=== PATIENT | female | born 1935 | race Caucasian/White ===

== ENCOUNTER 2025-02-12 07:43 | Emergency (ER) | payer OTHER ==
[~2025-02-12] VITALS: Ht 170.2 cm; Wt 60.6 kg
--- NOTE | 2025-02-12 08:16 | Physician Documentation ---
History of Present Illness General Chief Complaint: Urinary Symptoms Stated Complaint: URINARY SYMPTOMS Time Seen by MD: 08:12 Source: patient, family Mode of Arrival: POV Exam Limitations: no limitations History of Present Illness Initial Comments 89 year old female presents to the emergency department for complaints of a possible urine infection that began one week ago. Patient states that she had worn a maxi pad for a long time without changing it, which she believes has caused her urine to produce a foul odor. Patient denies any frequency, pain, or pressure when urinating. She states that her symptom has been present for a week but worsened yesterday. Additionally, she states that she has used rash cream which caused her symptoms to worsen. Medication Reconciliation Allergies: Coded Allergies: No Known Allergies (Unverified , 02/12/25) Scheduled Cefpodoxime Proxetil (Cefpodoxime Proxetil), 1 TAB PO Q12H Past Medical History Past Medical History: No Pertinent History Review of Systems All Other Systems at this time: Reviewed and Negative ROS Patient was asked, but denied any other symptoms. All other systems are negative other than those mentioned above. Physical Exam Physical Exam Vital Signs: RN Vital Signs have been reviewed: Yes, Temperature: 98.5, Source: Oral, Heart Rate: 91, Respiratory Rate: 16, BP: 146/87, Pulse Oximetry: 98, Weight: 60.600 Oxygen Flow Rate: 0 Pulse Oximetry Reflects: adequate oxygenation Physical Exam VITALS: Reviewed and as above. GENERAL: Alert, no apparent distress. HEENT: Normocephalic, atraumatic. PERRL, EOMI. Dry mucosa, no erythema. RESPIRATORY: Lungs clear, normal breath sounds, no respiratory distress. CHEST: No accessory muscle use, no retractions. CV: Regular rate and rhythm. No edema, no murmur, No: JVD GI: Soft, non-tender, bowel sounds present. No rebound, guarding, or rigidity. BACK: No CVA tenderness, no swelling. MUSCULOSKELETAL: No deformities, no edema SKIN: Warm and dry, no rash. NEURO: Oriented x4. No motor or sensory deficit. PSYCH: Normal mood and affect, no agitation. Progress Results/Orders Results/Orders Medications Received in ER Medications (Trade) Dose Ordered Sig/Lian Route PRN Reason Start Time Stop Time Status Last Admin Dose Admin Ceftriaxone Sodium 50 ml @ 100 mls/hr ONCE ONCE IV 02/12/25 08:25 02/12/25 08:54 DC 02/12/25 09:16 100 MLS/HR Vital Signs 02/12/25 02/12/25 07:50 08:13 Temp 98.5 98.5 Pulse 90 91 Resp 16 16 B/P (MAP) 165/84 146/87 (106) Pulse Ox 97 98 O2 Flow Rate 0 0 Laboratory Tests Test 02/12/25 09:11 02/12/25 09:50 02/12/25 10:44 White Blood Count 8.1 Red Blood Count 4.37 Hemoglobin 12.6 Hematocrit 38.0 Mean Corpuscular Volume 87.0 Mean Corpuscular Hemoglobin 28.8 Mean Corpuscular Hemoglobin Concent 33.1 Red Cell Distribution Width 15.7 H Platelet Count 346 Mean Platelet Volume 6.5 L Neutrophils (%) (Auto) 68.3 Lymphocytes (%) (Auto) 21.3 Monocytes (%) (Auto) 5.9 Eosinophils (%) (Auto) 2.9 Basophils (%) (Auto) 1.6 H Neutrophils # (Auto) 5.5 Lymphocytes # (Auto) 1.7 Monocytes # (Auto) 0.5 Eosinophils # (Auto) 0.2 Basophils # (Auto) 0.1 CBC Comment Chemistry Comments Sodium Level 138 Potassium Level 4.5 Chloride Level 104 Carbon Dioxide Level 28.8 Anion Gap 5 L Blood Urea Nitrogen 12 Creatinine 0.88 Estimated GFR/1.73 m2 61 BUN/Creatinine Ratio 13.6 Glucose Level 93 Calcium Level 8.9 Albumin 3.3 L Urine Specimen Description Voided Urine Color Yellow Urine Clarity Cloudy Urine pH 8.0 Urine Specific Addy 1.015 Urine Protein Negative Urine Glucose (UA) Negative Urine Ketones Negative Urine Occult Blood Small Urine Nitrite Positive H Urine Bilirubin Negative Urine Urobilinogen 0.2 Urine Leukocyte Esterase Large H Urine RBC 3-10 Urine WBC Tntc H Urine Squamous Epithelial Cells Few Urine Transitional Epithelial Cells Few Urine Renal Cells Few Urine Bacteria 4+ Urine Culture Indicated Indicated Volume Urine Centrifuged 10 ml Urine Comment Departure Time of Disposition: 11:14 Disposition: 01 HOME / SELF CARE / HOMELESS Impression: Primary Impression: UTI (urinary tract infection) Condition: Stable Discharge Instructions: Urinary Tract Infection, Adult Referrals: NO PRIMARY CARE PROVIDER (PCP) Prescriptions Cefpodoxime Proxetil (Cefpodoxime Proxetil) 100 Mg Tablet 1 TAB PO Q12H for 7 Days, #14 TAB 0 Refills Prov: MATTEO ROCHA MD 02/12/25 Education Educated: Patient Educated regarding: diagnosis, treatment, need for follow up Signature Scribe Signature: Scribed for Matteo Rocha MD by Sanjuana Murray . 02/12/25 08:27 MATTEO ROCHA MD Feb 12, 2025 08:16 SANJUANA HOU Feb 12, 2025 08:27
[2025-02-12] MEDS: CefTRIAXone/D5W-Rocephin 1gm 50 ML IV ONE (09:16)
[2025-02-12 09:33] LABS: MEAN PLATELET VOLUME 6.5 FL (7.4-10.4); RED CELL DISTRIBUTION WIDTH 15.7 % (11.5-14.5)
[2025-02-12 10:09] LABS: CREATININE 0.88 MG/DL (0.40-0.90); TOTAL CARBON DIOXIDE 28.8 MMOL/L (24-32); eCRCL 42 ML/MIN; eGFR 61 ML/MIN
[2025-02-12 10:55] LABS: LEUKOCYTE ESTERASE ,URINE LARGE (Neg); NITRITES, URINE POSITIVE (Neg); OCCULT BLOOD,URINE SMALL (Neg)
[2025-02-12 10:56] LABS: UA COLLECTION TYPE VOIDED
[2025-02-12 11:01] LABS: RENAL CELLS, URINE FEW /HPF; SQUAMOUS EPITHELIAL CELL,UR FEW /LPF (FEW)
[2025-02-12] MEDS ORDERED: CEFP100T7 PO (11:13)
[2025-02-12 11:44] VITALS: BP 144/82; PULSE 83; RESP 16; TEMP 98.5; O2SAT 95
== END 2025-02-12 11:48 | disposition home or self-care (01) ==
LOC: ER 07:45
DX: N39.0 Urinary tract infection, site not specified (principal); Z87.440 Personal history of urinary (tract) infections
CPT/HCPCS: 36415; 80048; 81001; 85025; 87088; 96365; 99284; J0696